=== PATIENT | female | born 1960 | race Caucasian/White ===

== ENCOUNTER 2017-05-18 23:11 | Emergency (ER) | payer SELFPAY ==
[2017-05-18 23:27] VITALS: BP 150/66; PULSE 73; TEMP 98.2; BMI 28.3
--- NOTE | 2017-05-19 00:04 | PDOC ---
History of Present Illness <Scott Back - Last Filed: 05/19/17 00:54> - General History Source: Patient Exam Limitations: No Limitations - History of Present Illness Initial Comments: 05/19/17 01:40 The patient is a 57-year-old female, with a significant past medical history of HTN, hypothyroidism, thyroid cancer s/p partial thyroidectomy (10 years ago), who presents to the ED with palpitations that began tonight. The patient states that she began experiencing palpitations (fluttering) and noted that her hands/ feet were cold and her mouth was dry, so she decided to check her BP at home and noted it to be high at 185/103. She is unsure if she took her BP medication this morning, so she took it before arriving to the ED. She reports making a drink to help with her symptoms that consisted of water, sugar, garlic, and vinegar. Last stress test was more than 5 years ago and was normal. She states that she has been feeling anxious lately but has not been experiencing anything traumatic in her life. pt states she currently feels much better. She denies any fever, chills, nausea, vomiting, diarrhea, or constipation. She denies any chest pain or shortness of breath. She denies any headache or lower extremity swelling/pain. <Purnima Thakkar - Last Filed: 05/19/17 01:41> - General Chief Complaint: Blood Pressure Problem Stated Complaint: BLOOD PRESSURE Time Seen by Provider: 05/18/17 23:41 Past History - Past Medical History GI Disorders: Yes (GERD) HTN: Yes Hypercholesterolemia: Yes Thyroid Disease: Yes - Surgical History Abdominal Surgery: Yes (TUBAL LIGATION) - Immunization History Immunization Up to Date: No - Suicide/Smoking/Psychosocial Hx Smoking Status: No Smoking History: Never smoked Number of Cigarettes Smoked Daily: 0 Hx Alcohol Use: No <Scott Back - Last Filed: 05/19/17 00:54> <Purnima Thakkar - Last Filed: 05/19/17 01:41> - Past Medical History Allergies/Adverse Reactions: Allergies Allergy/AdvReac Type Severity Reaction Status Date / Time No Known Allergies Allergy Verified 05/18/17 23:27 Home Medications: Ambulatory Orders Levothyroxine [Synthroid -] 50 mcg PO DAILY 05/29/13 Oseltamivir Phosphate [Tamiflu] 75 mg PO BID #10 capsule 12/20/14 Metoprolol Tartrate [Lopressor -] 100 mg PO BID 12/21/14 Review of Systems - Review of Systems Able to Perform ROS?: Yes Comments:: 05/19/17 01:40 CONSTITUTIONAL: No reported: Fever, Chills, Diaphoresis, Generalized Weakness, Malaise HEENT: No reported: Rhinorrhea, Nasal Congestion, Throat Pain, Throat Swelling, Difficulty Swallowing, Mouth Swelling, Ear Pain, Eye Pain CARDIOVASCULAR: Reported: Palpitations No reported: Chest Pain, Syncope, Irregular Heart Rate, Lightheadedness, Peripheral Edema RESPIRATORY: No reported: Cough, Shortness of Breath, SOB with Exertion, Orthopnea, Wheezing , Stridor, Hemoptysis GASTROINTESTINAL: No reported: Abdominal Distension, Nausea, Vomiting, Diarrhea, Constipation, Melena, Hematochezia GENITOURINARY: No reported: Dysuria, Frequency, Urgency, Hesitancy, Flank Pain, Genital Pain MUSCULOSKELETAL: No reported: Myalgia, Arthralgia, Joint Swelling, Back pain, Neck Pain SKIN: No reported: Rash, Itching, Pallor HEMEATOLOGIC/IMMUNOLOGIC: No reported: Easy Bleeding, Easy Bruising, Lymphadenopathy, Frequent infections ENDOCRINE: No reported: Unexplained Weight Gain, Unexplained Weight Loss, Heat Intolerance , Cold Intolerance NEUROLOGIC: No reported: Headache, Focal Weakness, Paresthesias, Dizzinessl, Vertigo, Unsteady Gait, Seizure, Mental Status Changes, Incontinence PSYCHIATRIC: No reported: Anxiety, Depression <Purnima Thakkar - Last Filed: 05/19/17 01:41> *Physical Exam - Vital Signs Last Vital Signs Temp Pulse Resp BP Pulse Ox 98.2 F 73 18 150/66 99 05/18/17 23:24 05/18/17 23:24 05/18/17 23:24 05/18/17 23:24 05/18/17 23:24 <Scott Back - Last Filed: 05/19/17 00:54> - Vital Signs Last Vital Signs Temp Pulse Resp BP Pulse Ox 98.2 F 73 18 150/66 99 05/18/17 23:24 05/18/17 23:24 05/18/17 23:24 05/18/17 23:24 05/18/17 23:24 - Physical Exam Comments: 05/19/17 01:41 GENERAL: The patient is awake, alert, and fully oriented, Nontoxic - in no acute distress. HEAD: Normocephalic, atraumatic. EYES: extraocular movements intact, sclera anicteric, conjunctiva clear. ENT: Normal voice, Moist mucous membranes. NECK: Normal range of motion, supple LUNGS: Breath sounds equal, clear to auscultation bilaterally. No wheezes, no rhonchi, no rales. HEART: Regular rate and rhythm, without murmur, rub or gallop. ABDOMEN: Soft, nontender, normoactive bowel sounds. No guarding, no rebound.No CVA tenderness EXTREMITIES: Normal range of motion, no edema. No clubbing or cyanosis. No cords, erythema, or tenderness. NEUROLOGICAL: No facial assymetry, Normal speech, PSYCH: Normal mood, normal affect. SKIN: Warm, Dry, normal turgor. <Purnima Thakkar - Last Filed: 05/19/17 01:41> Heart Score/ECG Review - ECG Impressions Comment:: 05/19/17 00:54 Twelve-lead EKG was performed and reviewed by me. There is normal sinus rhythm with a normal rate. rate of 71 The axis is normal. The intervals are normal. There is normal R wave progression There are no ST or T wave abnormalities. Impression: Normal twelve-lead EKG <Scott Back - Last Filed: 05/19/17 00:54> Medical Decision Making - Medical Decision Making 05/19/17 00:17 57y F hx of htn presnets with complaint of htn. Pt states this evening she felt some palpitations after eating dinner, went to check her BP and it was 195/103. The pt was otherwise asypmtomatic. the pt thinks she may hav emissed her AM dose of bp meds. she took them prior to arrival. the pt is currently asy pmtomatic. exam is normal. pt denies any cp, sob, abd pain, n/v, diaphoresis, leg edema, dizziness, headache, vision changes. wlil ck ekg bp is reasonabl ehere at 150s if neg will dc with pm dfu A portion of this note was documented by scribe services under my direction. I have reviewed the details of the note, within reason, and agree with the documentation with the following case summary and management plan written by me 05/19/17 00:56 ekg normal will dc pt with pmd fu return precautions were discussed I discussed the physical exam findings, ancillary test results and final diagnoses with the patient. I answered all of the patient's questions. The patient was satisfied with the care received and felt comfortable with the discharge plan and treatment plan. The patient will call their primary care physician within 24 hours to arrange follow-up and will return to the Emergency Department with any new, persistent or worsening symptoms. <Scott Back - Last Filed: 05/19/17 00:54> *DC/Admit/Observation/Transfer - Discharge Dispostion Admit: No <Scott Back - Last Filed: 05/19/17 00:54> - Attestations Scribe Attestion: 05/19/17 01:41 Documentation prepared by Purnima Thakkar, acting as medical genetics director for Scott Back MD. <Purnima Thakkar - Last Filed: 05/19/17 01:41> Diagnosis at time of Disposition: Hypertension Qualifiers: Hypertension type: essential hypertension Qualified Code(s): I10 - Essential ( primary) hypertension - Discharge Dispostion Disposition: HOME Condition at time of disposition: Improved - Referrals Referrals: Phillip Finn MD [Primary Care Provider] - - Patient Instructions Printed Discharge Instructions: DI for High Blood Pressure, How to Monitor Your Blood Pressure at Home Additional Instructions: Return to the emergency department immediately with ANY new, persistent or worsening symptoms. You MUST call and follow up with your doctor tomorrow for further evaluation of your symptoms. Results were discussed with you. Please make sure your doctor reviews the results of your emergency evaluation. If you had any xrays during your visit, it was read preliminarily by myself, a Radiologist will review it and if there are any additional findings we will call you.
--- NOTE | 2017-05-19 09:53 | EKG ---
Test Reason : Blood Pressure : / mmHG Vent. Rate : 071 BPM Atrial Rate : 071 BPM P-R Int : 192 ms QRS Dur : 086 ms QT Int : 402 ms P-R-T Axes : 059 038 033 degrees QTc Int : 436 ms NORMAL SINUS RHYTHM NORMAL ECG WHEN COMPARED WITH ECG OF 08-SEP-2014 01:33, NO SIGNIFICANT CHANGE WAS FOUND Confirmed by MARISOL FITZPATRICK MD ([id number]) on 05/19/2017 9:52:54 AM Referred By: Confirmed By:MARISOL FITZPATRICK MD
== END 2017-05-19 01:01 | disposition home or self-care (01) ==
LOC: JER 23:11
DX: I10 Essential (primary) hypertension (principal)
CPT/HCPCS: 93005; 93010; 99282-25

== ENCOUNTER 2018-05-27 05:59 | Emergency (ER) | payer OTHER ==
--- NOTE | 2018-05-27 06:58 | PDOC ---
History of Present Illness - General Chief Complaint: Blood Pressure Problem Stated Complaint: BLOOD PRESSURE PROBLEM Time Seen by Provider: 05/27/18 06:58 History Source: Patient - History of Present Illness Initial Comments: 05/27/18 07:08 The patient is a 58 year old female with a PMH HTN, hypothyroidism, thyroid cancer s/p partial thyroidectomy (10 years ago), who presents to the ED with palpitations. Patient states the palpitations woke her from sleep around 5 a.m. - she went to the kitchen and drank her garlic water mix (garlic, vinegar and sugar) which usually helps with her palpitations and blood pressure. Patient measured her pressure and noted it to be 159/98 prompting her visit to the ED. Patient states she usually measures her pressures 1-2x weekly and it's usually 140's/80's. Notes she has not taken her meds for the last three days because she ran out of her pills. She thinks her medication regimen is Metoprolol (100 mg) and Lisinopril (40 mg) but she is unsure. Patient states her last appointment with her PMD was last year and she is due to schedule another appointment. States she has had palpitations on and off for the last 3 years --she has had Holter monitoring in the past with no known results and cannot recall if she has had any stress testing. Patient denies any chest pain, shortness of breath, leg swelling, lightheadedness. NKDA Surgical: Thyroid resection Social: denies toxic habits PMD: Dr. Phillip Ambrosio As per EMR patient was last evaluated in our ED on 05/18/17 for similar c/o palpitations. BP was 150's/90's and she was discharged home with PMD follow-up. Past History - Past Medical History Allergies/Adverse Reactions: Allergies Allergy/AdvReac Type Severity Reaction Status Date / Time No Known Allergies Allergy Verified 05/27/18 07:01 Home Medications: Ambulatory Orders Levothyroxine [Synthroid -] 50 mcg PO DAILY 30 Days #30 tablet 05/27/18 Lisinopril/Hydrochlorothiazide [Lisinopril-Hctz 20-25 mg Tab] 1 each PO DAILY 30 Days #30 tablet 05/27/18 Metoprolol Succinate [Toprol Xl] 100 mg PO DAILY 30 Days #30 tab.er.24h GI Disorders: Yes (GERD) HTN: Yes Hypercholesterolemia: Yes Thyroid Disease: Yes - Surgical History Abdominal Surgery: Yes (TUBAL LIGATION) - Immunization History Immunization Up to Date: No - Suicide/Smoking/Psychosocial Hx Smoking Status: No Smoking History: Never smoked Number of Cigarettes Smoked Daily: 0 Hx Alcohol Use: No Review of Systems - Review of Systems Constitutional: No: Chills, Fever HEENTM: No: Blurred Vision, Double Vision Respiratory: No: Cough, Shortness of Breath, Wheezing, Hemoptysis Cardiac (ROS): No: Chest Pain, Lightheadedness, Palpitations, Syncope ABD/GI: No: Constipated, Diarrhea, Nausea, Vomiting *Physical Exam - Physical Exam General Appearance: Yes: Nourished, Appropriately Dressed HEENT: positive: Normal Voice, Hearing Grossly Normal Neck: positive: Trachea midline, Supple Respiratory/Chest: positive: Lungs Clear, Normal Breath Sounds. negative: Labored Respiration, Rapid RR, Crackles, Wheezing Cardiovascular: positive: Regular Rate, S1, S2. negative: Edema, JVD, Murmur Vascular Pulses: Dorsalis-Pedis (R): 2+, Doralis-Pedis (L): 2+ Gastrointestinal/Abdominal: positive: Normal Bowel Sounds, Soft. negative: Tender Musculoskeletal: negative: CVA Tenderness (R), CVA Tenderness (L) Extremity: positive: Normal Capillary Refill, Normal Inspection Integumentary: positive: Normal Color, Dry, Warm Heart Score/ECG Review - History History: Slightly suspicious - Electrocardiogram EKG: Normal - Age Age: 45-65 - Risk Factors Risk Factors Heart Score: Yes Hx Hypertension Based on the list above the patient has:: 1-2 risk factors - ECG Intrepretation Rhythm: Regular Rhythm - Orgas Orgas: Normal - ECG Impressions Normal ECG: Yes Comment:: 05/27/18 08:47 NSR HR 84, no TWI/SANJAY/STD - non ischemic ECG ED Treatment Course - LABORATORY CBC & Chemistry Diagram: 05/27/18 08:00 Medical Decision Making - Medical Decision Making 05/27/18 07:21 58 year old female presents with resolved palpations and complaint of elevated BP. At presentation BP 171/99. Other VS unremarkable. H/o 3 days of missed medications. Attempted to call patient's pharmacy ([facility]) however it was closed. Will give patient OTD of her medications, obtain ECG and check electrolytes for any electrolyte abnormality causing palpitations. 05/27/18 07:52 ECG non-ischemic, c/w previous ECG dated 05/28 - documented in ECG section of the EMR CMP pending Repeat BP @ bedside 143/91 05/27/18 08:36 05/27/18 08:55 05/27/18 08:59 Call placed to patient's pharmacy [facility] , patient's current medications: Toprol XL (100 QD), Levothyroxine (50 mcg), and Lisinopril/HCTZ (20-25 mg QD). Will send 30 day prescription to patient's pharmacy with instruction to f/u with PMD for further HTN management. 05/27/18 09:13 Repeat BP 142/88. CMP shows no electrolyte abnormalities. Patient notes she has also run out of her Levoxythyroxine. Will give a one time prescription for Levoxythyroxine (50 mcg). Patient and patient's counseled extensively on importance of primary care and discharge home. I discussed the physical exam findings, ancillary test results and final diagnoses with the patient. I answered all of the patient's questions. The patient was satisfied with the care received and felt comfortable with the discharge plan and treatment plan. The patient will return to the Emergency Department with any new, persistent or worsening symptoms. *DC/Admit/Observation/Transfer Diagnosis at time of Disposition: High blood pressure - Discharge Dispostion Condition at time of disposition: Fair - Prescriptions Prescriptions: Levothyroxine [Synthroid -] 50 mcg PO DAILY 30 Days #30 tablet Lisinopril/Hydrochlorothiazide [Lisinopril-Hctz 20-25 mg Tab] 1 each PO DAILY 30 Days #30 tablet Metoprolol Succinate [Toprol Xl] 100 mg PO DAILY 30 Days #30 tab.er.24h - Referrals Referrals: Phillip Finn MD [Primary Care Provider] - - Patient Instructions Printed Discharge Instructions: DI for High Blood Pressure, How to Monitor Your Blood Pressure at Home Additional Instructions: You were evaluated today for your palpitations and high blood pressure. Your labs and a ECG of your heart rhythm showed no concerning findings. At this time you are safe for discharge. Please call Dr. Finn today and make an appointment for evaluation within the next 1 week. We have sent a prescription for your blood pressure and hypothyroidism medications to your pharmacy. Please continue to take them as directed and follow-up with your Dr. Finn for further management and prescription refills. Return to the Emergency Department for any new/worsening/concerning symptoms. - Post Discharge Activity
[2018-05-27 07:01] VITALS: BMI 30.7
[2018-05-27] MEDS ORDERED: METOPROLOL TARTRATE 50 MG TABLET (FP) PO ONE (07:36)
--- NOTE | 2018-05-27 08:24 | PDOC ---
Attending Attestation - Resident Resident Name: Autumn Kaur - ED Attending Attestation I have performed the following: I have examined & evaluated the patient, The case was reviewed & discussed with the resident, I agree w/resident's findings & plan - HPI HPI: 05/27/18 08:20 58-year-old female with history of hypertension presents with palpitations and elevated blood pressure reading at home in the setting of 3-4 days of noncompliant secondary to running out of her medications. The palpitations are not uncommon for her, also monitoring in the past has been negative. Denies any symptoms of end organ injury with the elevated blood pressure. - Physicial Exam PE: 05/27/18 08:20 Blood pressure at triage 180 systolic, 140/90 on my assessment in the emergency department Well-appearing, speaking full sentences Neurologically intact Cardiopulmonary exam normal - Medical Decision Making 05/27/18 08:21 58-year-old female with elevated blood pressure and transient palpitations in the setting of medication noncompliance for a few days. Elevated blood pressure here, no other red flags on history or physical exam. Will check electrolytes given the palpitations EKG is normal and nonischemic Will give dose of her BP meds, refill prescription and have her follow-up with Dr. Finn. Heart Score/ECG Review #1 ECG reviewed & interpreted by me at: 07:49 General ECG Interpretation: Sinus Rhythm, Normal Rate (84), Normal Intervals ( qtc 458), No acute ischemic changes (inf q waves, no st changes) Compared to previous ECG there are: No significant change (05/19/17)
[2018-05-27] MEDS ORDERED: LISINOPRIL 20 MG TABLET (FP) PO SCH ×2 (08:27→10:00)
[2018-05-27] MEDS ORDERED: METOPROLOL TARTRATE 50 MG TABLET (FP) ONE (08:28)
[2018-05-27] MEDS ORDERED: LISINOPRIL 20 MG TABLET (FP) ONE (08:28)
[2018-05-27 08:39] VITALS: TEMP 98.1
[2018-05-27 08:58] LABS: ALBUMIN 3.7 g/dl (3.4-5.0); ALK PHOS 67 U/L (45-117); ANION GAP 4 MMOL/L (8-16); BILIRUBIN,TOTAL 0.3 mg/dL (0.2-1); BLOOD UREA NITROGEN 13 mg/dL (7-18); CALCIUM 9.2 mg/dL (8.5-10.1); CHLORIDE 106 mmol/L (98-107); CO2 31 mmol/L (21-32); CREATININE 0.6 mg/dL (0.55-1.3); GLUCOSE,RANDOM 102 mg/dL (74-106); POTASSIUM 3.7 mmol/L (3.5-5.1); SGOT/AST 20 U/L (15-37); SGPT/ALT 30 U/L (13-61); SODIUM 142 mmol/L (136-145)
[2018-05-27 09:07] LABS: MAGNESIUM 2.1 mg/dL (1.8-2.4)
[2018-05-27 09:27] VITALS: BP 142/88; PULSE 82
--- NOTE | 2018-05-27 11:46 | EKG ---
Test Reason : Blood Pressure : / mmHG Vent. Rate : 084 BPM Atrial Rate : 084 BPM P-R Int : 170 ms QRS Dur : 082 ms QT Int : 388 ms P-R-T Axes : 062 004 027 degrees QTc Int : 458 ms POOR DATA QUALITY, INTERPRETATION MAY BE ADVERSELY AFFECTED NORMAL SINUS RHYTHM INFERIOR INFARCT , AGE UNDETERMINED ABNORMAL ECG WHEN COMPARED WITH ECG OF 19-MAY-2017 00:27, NONSPECIFIC T WAVE ABNORMALITY NOW EVIDENT IN ANTERIOR LEADS Confirmed by Familia Roach MD ([id number]) on 05/27/2018 11:45:50 AM Referred By: Confirmed By:Familia Roach MD
== END 2018-05-27 09:27 | disposition home or self-care (01) ==
LOC: JER 05:59
DX: I11.0 Hypertensive heart disease with heart failure (principal); E78.00 Pure hypercholesterolemia, unspecified; K21.9 Gastro-esophageal reflux disease without esophagitis; E03.9 Hypothyroidism, unspecified; E89.0 Postprocedural hypothyroidism
CPT/HCPCS: 36415; 80053; 83735; 93005; 93010; 99282-25

== ENCOUNTER 2019-04-12 09:50 | Emergency (ER) | payer OTHER ==
[2019-04-12 09:55] VITALS: BP 138/67; PULSE 80; TEMP 98.2; BMI 30.5
--- NOTE | 2019-04-12 10:23 | PDOC ---
History of Present Illness - General Chief Complaint: Urinary Problem Stated Complaint: UTI Time Seen by Provider: 04/12/19 10:12 History Source: Patient Exam Limitations: No Limitations - History of Present Illness Initial Comments: 04/12/19 10:15 And here with complaints of pain, burning, and frequency of urine started this morning. She was concerned that some peppers and thinks may be cause of frequency and burning but had urinary tract infection some years ago and feels may be the same. Denies fever, nausea vomiting, no blood in urine, no problems with bowel and no vaginal discharge. Timing/Duration: unsure, 24 hours Severity: mild Associated Symptoms: denies: fever/chills, headaches, nausea/vomiting Past History - Past Medical History Allergies/Adverse Reactions: Allergies Allergy/AdvReac Type Severity Reaction Status Date / Time No Known Allergies Allergy Verified 04/12/19 09:55 Home Medications: Ambulatory Orders Levothyroxine [Synthroid -] 50 mcg PO DAILY 30 Days #30 tablet 05/27/18 Lisinopril/Hydrochlorothiazide [Lisinopril-Hctz 20-25 mg Tab] 1 each PO DAILY 30 Days #30 tablet 05/27/18 Metoprolol Succinate [Toprol Xl] 100 mg PO DAILY 30 Days #30 tab.er.24h Nitrofurantoin Monohyd/M-Cryst [Macrobid -] 100 mg PO BID #14 capsule 04/12/19 COPD: No GI Disorders: Yes (GERD) HTN: Yes Hypercholesterolemia: Yes Thyroid Disease: Yes - Surgical History Abdominal Surgery: Yes (TUBAL LIGATION) - Reproductive History Is Patient Now?: No - Immunization History Immunization Up to Date: No - Suicide/Smoking/Psychosocial Hx Smoking Status: No Smoking History: Never smoked Have you smoked in the past 12 months: No Number of Cigarettes Smoked Daily: 0 Hx Alcohol Use: No Drug/Substance Use Hx: No Substance Use Type: None Review of Systems - Review of Systems Able to Perform ROS?: Yes Is the patient limited Bengali proficient: Yes Constitutional: Yes: See HPI. No: Fever, Malaise HEENTM: No: Symptoms Reported Respiratory: Yes: See HPI. No: Symptoms reported, Cough : Yes: Symptoms Reported, See HPI, Burning, Dysuria, Frequency. No: Discharge Musculoskeletal: No: Symptoms Reported All Other Systems: Reviewed and Negative *Physical Exam - Vital Signs Last Vital Signs Temp Pulse Resp BP Pulse Ox 98.2 F 80 14 138/67 97 04/12/19 09:53 04/12/19 09:53 04/12/19 09:53 04/12/19 09:53 04/12/19 09:53 - Physical Exam General Appearance: Yes: Nourished, Appropriately Dressed. No: Apparent Distress HEENT: positive: BEE, Normal ENT Inspection, TMs Normal, Pharynx Normal Neck: positive: Supple. negative: Tender, Lymphadenopathy (R), Lymphadenopathy (L) Respiratory/Chest: positive: Lungs Clear, Normal Breath Sounds Gastrointestinal/Abdominal: positive: Tender (mild suprapubic), Soft Musculoskeletal: positive: Normal Inspection. negative: CVA Tenderness, Vertebral Tenderness Extremity: positive: Normal Capillary Refill, Normal Inspection, Normal Range of Motion Integumentary: positive: Normal Color, Dry, Pale Neurologic: positive: battery assembler II-XII NML intact, Fully Oriented, Alert, Normal Mood/ Affect, Normal Response, Motor Strength /5 Medical Decision Making - Medical Decision Making 04/12/19 11:00 UTI, we'll treat with Macrobid *DC/Admit/Observation/Transfer Diagnosis at time of Disposition: Urinary tract infection Qualifiers: Urinary tract infection type: acute cystitis Hematuria presence: with hematuria Qualified Code(s): N30.01 - Acute cystitis with hematuria - Discharge Dispostion Disposition: HOME Condition at time of disposition: Stable Decision to Admit order: No - Prescriptions Prescriptions: Nitrofurantoin Monohyd/M-Cryst [Macrobid -] 100 mg PO BID #14 capsule - Referrals Referrals: Phillip Finn MD [Primary Care Provider] - - Patient Instructions Printed Discharge Instructions: DI for Urinary Tract Infection (UTI) Additional Instructions: Rest, drink lots of fluids: Teas, water, soups Avoid contact with others until fevers and symptoms resolved Lots of handwashing and good hygiene Continue [id number] medications for symptomatic relief Tylenol or Motrin for fever and pain Continue all of antibiotics until completed Followup with private physician in one week for repeat urinalysis/reevaluation Return to emergency department for worsened symptoms, fevers, dehydration - Post Discharge Activity Forms/Work/School Notes: Back to Work
[2019-04-12 10:25] LABS: URINE APPEARANCE CLEAR; URINE BILIRUBIN NEGATIVE (NEGATIVE); URINE COLOR YELLOW; URINE GLUCOSE (UA) NEGATIVE (NEGATIVE); URINE KETONE NEGATIVE (NEGATIVE); URINE LEUK ESTERASE 2+ (NEGATIVE); URINE NITRITE NEGATIVE (NEGATIVE); URINE PROTEIN NEGATIVE (NEGATIVE); URINE UROBILINOGEN 0.2 mg/dL (0.2-1.0)
[2019-04-12 14:22] LABS: EPI CELLS 1+ /HPF (0-5/HPF); HYALINE CASTS NONE SEEN /lpf (0-8); URINE RBC 5 /hpf (0-4); URINE WBC >100 /hpf (0-5)
[2019-04-12 14:23] LABS: URINE BACTERIA 2+ /hpf (NEGATIVE)
== END 2019-04-12 11:21 | disposition home or self-care (01) ==
LOC: JERFT 09:50
DX: N30.01 Acute cystitis with hematuria (principal); I10 Essential (primary) hypertension; E78.00 Pure hypercholesterolemia, unspecified; E07.9 Disorder of thyroid, unspecified
CPT/HCPCS: 81003; 87086; 87186; 99282-25

== ENCOUNTER 2022-09-26 03:08 | Emergency (ER) | payer OTHER ==
[2022-09-26 03:30] VITALS: PULSE 67; RESP 20; TEMP 97.7; BMI 30.2
[2022-09-26] MEDS ORDERED: MAG HYDROX/AL HYDROX/SIMETH 30 ML UNIT-DOSE CUP PO ONE (04:04)
[2022-09-26] MEDS ORDERED: FAMOTIDINE 20 MG/50 ML IVPB 20 MG/50 ML MG IVPB ONE ×2 (04:07→04:24)
[2022-09-26] MEDS ORDERED: SUCRALFATE 1 GM/10 ML UNIT DOSE CUPS PO ONE (04:09)
[2022-09-26] MEDS ORDERED: MAG HYDROX/AL HYDROX/SIMETH 30 ML UNIT-DOSE CUP ONE (04:25)
[2022-09-26 05:09] VITALS: BP 169/85
[2022-09-26 05:26] LABS: BASO % 0.5 % (0-2.0); EOS % 3.2 % (0-4.5); HEMATOCRIT 40.8 % (32.4-45.2); HEMOGLOBIN 13.8 GM/dL (10.7-15.3); MCH 30.7 pg (25.7-33.7); MCHC 33.9 g/dl (32.0-36.0); MEAN CELL VOLUME 90.6 fl (80-96); MEAN PLT VOLUME 9.1 fl (7.5-11.1); MONO % 8.3 % (3.8-10.2); PLATELET COUNT 286 10^3/uL (134-434); RDW 13.2 % (11.6-15.6); WHITE BLOOD COUNT 8.4 K/mm3 (4.0-10.0)
[2022-09-26 05:33] LABS: CALCIUM 8.6 mg/dL (8.5-10.1)
[2022-09-26 05:34] LABS: ALBUMIN 3.6 g/dl (3.4-5.0); BLOOD UREA NITROGEN 13.2 mg/dL (7-18); MAGNESIUM 2.1 mg/dL (1.8-2.4)
[2022-09-26 05:37] LABS: CREATININE 0.6 mg/dL (0.55-1.3)
[2022-09-26 05:38] LABS: BILIRUBIN,TOTAL 0.4 mg/dL (0.2-1); TOT PROT 7.7 g/dl (6.4-8.2)
== END 2022-09-26 06:29 | disposition home or self-care (01) ==
LOC: JER 03:08
PROC: 3E033GC Introduction of Other Therapeutic Substance into Peripheral Vein, Percutaneous Approach (ICD-10-PCS; principal; 2022-09-26)
DX: R14.0 Abdominal distension (gaseous) (principal)
CPT/HCPCS: 36415; 80053; 83690; 83735; 84484; 85025; 93005; 93010; 99284-25

== ENCOUNTER 2023-11-30 07:32 | Emergency (ER) | payer OTHER ==
[2023-11-30 07:45] VITALS: BMI 29.2
[2023-11-30 08:33] VITALS: BP 168/94; PULSE 93; RESP 18; TEMP 97.9
[2023-11-30] MEDS: SODIUM CHLORIDE 0.9% 500 ML INFUS.BAG IV ONE (09:36)
[2023-11-30 09:37] LABS: BASO % 0.8 % (0-2.0); EOS % 2.8 % (0-4.5); HEMATOCRIT 41.2 % (32.4-45.2); LYMPH % 20.5 % (8-40); MCH 30.8 pg (25.7-33.7); MEAN CELL VOLUME 90.6 fl (80-96); MEAN PLT VOLUME 8.2 fl (7.5-11.1); MONO % 9.1 % (3.8-10.2); NEUT % 66.8 % (42.8-82.8); PLATELET COUNT 267 10^3/uL (134-434); RBC 4.55 M/mm3 (3.60-5.2); RDW 13.1 % (11.6-15.6); WHITE BLOOD COUNT 7.2 K/mm3 (4.0-10.0)
[2023-11-30 10:42] LABS: ALBUMIN 3.7 g/dl (3.4-5.0); BLOOD UREA NITROGEN 9.2 mg/dL (7-18)
[2023-11-30 10:45] LABS: CREATININE 0.6 mg/dL (0.55-1.3)
[2023-11-30 10:46] LABS: TOT PROT 7.7 g/dl (6.4-8.2)
[2023-11-30 10:47] LABS: BILIRUBIN,TOTAL 0.8 mg/dL (0.2-1)
== END 2023-11-30 13:59 | disposition home or self-care (01) ==
LOC: JER 07:32
DX: R09.89 Other specified symptoms and signs involving the circulatory and respiratory systems (principal); R09.81 Nasal congestion; Z20.822 Contact with and (suspected) exposure to COVID-19
CPT/HCPCS: 0241U-QW; 36415; 70491-TC; 80053; 85025; 93005; 93010; 99285-25